=== PATIENT | male | born 1975 ===

== ENCOUNTER 2019-10-17 16:00 | Emergency (ER) | payer OTHER ==
[2019-10-17 17:42] VITALS: BP 142/86
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
== END 2019-10-17 22:15 | disposition home or self-care (01) ==
LOC: ED 16:00
DX: S46.811A Strain of other muscles, fascia and tendons at shoulder and upper arm level, right arm, initial encounter (principal); S39.012A Strain of muscle, fascia and tendon of lower back, initial encounter; M54.2 Cervicalgia; F17.200 Nicotine dependence, unspecified, uncomplicated; Z79.899 Other long term (current) drug therapy; Z90.49 Acquired absence of other specified parts of digestive tract; V49.59XA Passenger injured in collision with other motor vehicles in traffic accident, initial encounter; Y93.89 Activity, other specified; Y92.410 Unspecified street and highway as the place of occurrence of the external cause; Y99.8 Other external cause status
CPT/HCPCS: 99282